=== PATIENT | female | born 1965 | race Caucasian/White ===

== ENCOUNTER → 2018-04-03 | Outpatient (CLI) | payer OTHER ==
[~2018-04-03] MED LIST: BCPs; HYDACE5 PO; RANI150 PO
== END ==
LOC: LAB SHORT 19:07 → LAB 19:07
PROVIDERS: Nurse Practitioner Family
DX: Z01.419 Encounter for gynecological examination (general) (routine) without abnormal findings (principal)
CPT/HCPCS: G0145

== ENCOUNTER 2025-06-03 09:40 | Day surgery (SDC) | payer OTHER ==
[~2025-06-03 09:40] MED LIST changes: +Balanced Salt Epinephrine Irrigation Solution 500 mL IR SCH; +Moxifloxacin HCL 0.5 MG/0.1 ML 0.4MLSYR LEFTEYE SCH; +Ondansetron 4 MG SoluTab MM PRN; +PHENYLEPHRINE\\TROPICAMIDE\\TETRACAINE OPHTHALMIC DILATING SOLN LEFTEYE PRN; +Povidone-Iodine 450 DROP/30 ML Solution LEFTEYE SCH; +Prinivil10 MG PO; +Triamcinolone Inj Susp 40 MG / ML 1ML Vial INJ SCH; +Triamcinolone Inj Susp 40 MG / ML 1ML Vial ONE
--- NOTE | 2025-06-03 10:02 | NUR ---
06/03/25 1002 Cecily Bates PT REPORTS VERY LITTLE ANXIETY ABOUT PROCEDURE, -09/15.
[2025-06-03] MEDS ORDERED: Tetracaine HCl 0.5% Opth Soln 15 ml LEFTEYE ONE (11:01)
--- NOTE | 2025-06-03 11:06 | NUR ---
06/03/25 1106 Joya Beasley N 117/80 99% 10L BLOW BY O2 60 18
[2025-06-03 11:23] VITALS: BP 118/77
== END 2025-06-03 11:39 | disposition home or self-care (01) ==
LOC: ORSCSDS 09:40
PROVIDERS: Ophthalmology
PROC: 08RK3JZ Replacement of Left Lens with Synthetic Substitute, Percutaneous Approach (ICD-10-PCS; principal; 2025-06-03 11:00)
DX: H25.12 Age-related nuclear cataract, left eye (principal); Z96.1 Presence of intraocular lens; H52.4 Presbyopia; Z79.899 Other long term (current) drug therapy
CPT/HCPCS: A9270; J2003; J3301; V2632